=== PATIENT | male | born 1955 | race Caucasian/White ===

== ENCOUNTER 2022-05-11 22:53 | Emergency (ER) | payer BC, MEDICAID, MEDICARE ==
[2022-05-11] MEDS ORDERED: Sodium Chloride 0.9% 10 ML Syringe FLUSH PRN (23:07)
[2022-05-11] MEDS ORDERED: Lidocaine 5% 700 MG Patch ONE (23:30)
[2022-05-11] MEDS ORDERED: Azithromycin 250 MG Tab ONE (23:30)
[2022-05-11] MEDS ORDERED: Apixaban 5 MG Tab ONE (23:30)
[2022-05-11] MEDS ORDERED: Ketorolac 60 MG/2 ML SDV IM ONE (23:37)
[2022-05-12 00:09] LABS: ESTIMATED GFR 71 mL/min (>60)
[2022-05-12] MEDS ORDERED: Iopamidol 755 Mg/ML 100 ML Bottle IV PRN (00:25)
[2022-05-12] MEDS ORDERED: Sodium Chloride 0.9% 50 ML SDV FLUSH SCH (00:30)
[2022-05-12] MEDS ORDERED: Apixaban 5 MG Tab PO ONE (01:40)
[2022-05-12] MEDS ORDERED: Lidocaine 5% 700 MG Patch TOP ONE (02:05)
== END 2022-05-12 02:02 | disposition home or self-care (01) ==
LOC: LB.ED 22:53
DX: I26.94 Multiple subsegmental thrombotic pulmonary emboli without acute cor pulmonale (principal); J18.9 Pneumonia, unspecified organism; Z79.01 Long term (current) use of anticoagulants
CPT/HCPCS: 36415; 71260; 80053; 84484; 85027; 85379; 93005; 96372; 99285; A9270-GY; J1885; J3490; Q9967